=== PATIENT | female | born 1970 | race Asian ===

== ENCOUNTER 2017-04-16 05:39 | Inpatient (IN) | payer MEDICAID ==
[~2017-04-16] VITALS: Ht 162.6 cm; Wt 81.6 kg
[2017-04-16] VITALS (7 sets, daily range): BP systolic 103–124; BP diastolic 66–82
--- NOTE | 2017-04-16 06:07 | Emergency Room Report ---
History of Present Illness General Chief Complaint: Back Pain-No Injury Source: Patient Present Illness HPI Is a 39-year-old female with history of back pain the past she presents with chief complaint of lower back pain. Woke up with severe back pain. No trauma. Pain localized today right lower lumbar area. No radiation. Worse with movement. Pain is 9/10. She has history of back pain but never this severe. Denies incontinence of bowel or urine. No urinary complaint. Allergies: Coded Allergies: PENICILLINS (Verified Allergy, Unknown, 04/16/17) Uncoded Allergies: CAT (Allergy, Unknown, 04/16/17) Patient History Past Medical History: see triage record, old chart reviewed Past Surgical History: other Pertinent Family History: none Social History: Denies: smoking Last Menstrual Period: 04/15/17 Now: No : 3 Para: 3 Immunizations: other Reviewed Nursing Documentation: PMH: Agreed, PSxH: Agreed Nursing Documentation-PMH Past Medical History: No Stated History Review of Systems Eye: Denies: eye pain, blurred vision ENT: Denies: ear pain, nose congestion, throat swelling Respiratory: Denies: cough, shortness of breath Cardiovascular: Denies: chest pain, palpitations Gastrointestinal: Denies: abdominal pain, diarrhea, nausea, vomiting Musculoskeletal: Reports: back pain, Denies: joint pain Skin: Denies: rash Neurological: Denies: headache, numbness Endocrine: Denies: increased thirst, increased urine Hematologic/Lymphatic: Denies: easy bruising All Other Systems: negative except mentioned in HPI Physical Exam Vital Signs Date Time Temp Pulse Resp B/P (MAP) Pulse Ox O2 Delivery O2 Flow Rate FiO2 04/16/17 05:49 98.2 88 15 133/70 95 Room Air vitals normal Sp02 EP Interpretation: reviewed, normal General Appearance: well appearing, no apparent distress, alert Head: normocephalic, atraumatic Eyes: bilateral eye PERRL, bilateral eye EOMI ENT: hearing grossly normal, normal pharynx Neck: full range of motion, supple, no meningismus Respiratory: chest non-tender, lungs clear, normal breath sounds Cardiovascular #1: regular rate, rhythm, no murmur Gastrointestinal: normal bowel sounds, non tender, no mass, no organomegaly, no bruit, non-distended Musculoskeletal: back normal - No midline percussive tenderness. No anesthesia. Mild tenderness to the right lower lumbar paraspinous muscle, gait/ station normal, normal range of motion Psychiatric: mood/affect normal Skin: warm/dry Medical Decision Making Diagnostic Impression: Primary Impression: Back pain Qualified Codes: M54.5 - Low back pain ER Course Patient present with lower back pain. Differential include muscle strain, herniated disc, degenerative changes, renal colic, UTI to name a few. Labs and CT scan ordered. I will sign this patient out to Dr. Narvaez for final disposition. Last Vital Signs Date Time Temp Pulse Resp B/P (MAP) Pulse Ox O2 Delivery O2 Flow Rate FiO2 04/16/17 05:49 98.2 88 15 133/70 95 Room Air ANGELINA MCPHERSON M.D. Apr 16, 2017 06:07
[2017-04-16] MEDS ORDERED: HYDROmorphone 1mg/ml Carpuject IVP ONE ×4 (06:15→12:30)
[2017-04-16] MEDS ORDERED: Ketorolac 30mg Inj IV ONE ×2 (06:15→12:45)
[2017-04-16 06:25] LABS: APPEARANCE,URINE SLIGHTLY CLOUDY; BILIRUBIN, URINE 1+ (NEGATIVE); GLUCOSE, URINE (UA) NEGATIVE (NEGATIVE); KETONES,URINE NEGATIVE (NEGATIVE); LEUKOCYTE ESTERASE ,URINE 3+ (NEGATIVE); NITRITE,URINE NEGATIVE (NEGATIVE); PH,URINE 5 (4.5-8.0); PROTEIN,URINE 2+ (NEGATIVE); UROBILINOGEN,URINE 1 MG/DL (0.0-1.0)
[2017-04-16 06:28] LABS: BASOPHILS % (AUTO) 1.2 % (0.0-2.0); EOSINOPHILS % (AUTO) 5.4 % (0.0-3.0); HEMOGLOBIN 14.9 G/DL (12.0-16.0); LYMPHOCYTES % (AUTO) 38.5 % (20.0-45.0); MEAN CORPUSCULAR VOLUME 93 FL (80-99); MONOCYTES % (AUTO) 7.5 % (1.0-10.0); NEUTROPHILS % (AUTO) 47.4 % (45.0-75.0); PLATELET COUNT 309 K/UL (150-450); RED BLOOD COUNT 4.72 M/UL (4.20-5.40); RED CELL DISTRIBUTION WIDTH 11.5 % (11.6-14.8); WHITE BLOOD COUNT 7.7 K/UL (4.8-10.8)
[2017-04-16 06:40] LABS: COLOR,URINE YELLOW
[2017-04-16 06:49] LABS: ANION GAP 11 mmol/L (5-15); BLOOD UREA NITROGEN 12 mg/dL (7-18); CARBON DIOXIDE 22 MMOL/L (21-32); CHLORIDE 104 MMOL/L (98-107); CREATININE 0.9 MG/DL (0.55-1.30); SODIUM 137 MMOL/L (136-145)
[2017-04-16] MEDS ORDERED: cefTRIAXone 1 GM in NS 55 ML IVPB ONE (07:00)
[2017-04-16] MEDS ORDERED: fentaNYL 100 mcg/2 mL IV ONE (08:00)
[2017-04-16] MEDS ORDERED: NKM (09:30)
--- NOTE | 2017-04-16 12:10 | Diagnostic Imaging Report ---
Indication: Right-sided back pain Technique: Spiral acquisitions obtained through the abdomen and pelvis. No oral contrast utilized, per emergency room physician request No IV contrast utilized, per referring physician request.. Multiplanar reconstructions were generated. Total dose length product 1292.46 mGycm. CTDIvol(s) 24.36 mGy. Dose reduction achieved using automated exposure control Comparison: None Findings: The appendix is normal. No evidence of diverticulosis or diverticulitis. No small bowel distention. No free or loculated intraperitoneal air or fluid is evident. Distal esophagus, stomach, duodenum or unremarkable. No small bowel distention. Lack of IV contrast limits assessment of the solid organs. The liver is diffusely hypoattenuating, consistent with fatty change. It is somewhat enlarged as well. There is a 17 mm cyst in segment 2. Subcentimeter low-attenuation lesion is seen in segment 8 which is too small to characterize. Gallbladder, bile ducts, pancreas, spleen, adrenals, kidneys are all unremarkable. No retroperitoneal or mesenteric mass or adenopathy. No pelvic mass or adenopathy. The uterus and adnexal structures are unremarkable. The bladder is nondistended. The included lung bases demonstrate some scarring or atelectasis on the right. There are trace bilateral pleural effusions The bones are unremarkable. There is evidence of significant posterior lumbar disc protrusion at L4-5, likely resulting in significant spinal canal stenosis. Impression: No acute abdominal or pelvic abnormality Bilateral small pleural effusions Fatty liver Basilar pulmonary parenchymal scarring or atelectasis Evidence of lumbar disc disease at L4-5, possibly significant. Correlate with clinical findings This agrees with the preliminary interpretation provided overnight by [facility] teleradiology service. The CT scanner at [facility] is accredited by the [employer] and the scans are performed using protocols designed to limit radiation exposure to as low as reasonably achievable to attain images of sufficient resolution adequate for diagnostic evaluation.
[2017-04-16] MEDS ORDERED: Milk of Magnesia 30ml Ud ORAL PRN (14:45)
[2017-04-16] MEDS: traMADol 50mg tab ORAL SCH ×2 (16:09→22:11)
[2017-04-16] MEDS: Enoxaparin 40mg Inj SUBQ SCH (16:15)
[2017-04-16] MEDS: Methocarbamol 750mg tab ORAL SCH ×2 (18:19→20:18)
--- NOTE | 2017-04-16 23:45 | History and Physical Report ---
DATE OF ADMISSION: 04/16/2017 CHIEF COMPLAINT/REASON FOR HOSPITALIZATION: The patient admitted with back pain and inability to walk. HISTORY OF PRESENT ILLNESS: The patient is a 47-year-old lady who generally been in good health. She presented with some stiffness when she woke up at 4:30 in the morning noticing noise outside of her residence. She went back to bed and at 9 am awoke and it took her about 40 minutes to get out of bed. She was unable to move and unable to walk adequately and had moderate to severe back pain. The patient had CT evidence of lumbar disk disease at L4-L5, possibly significant posterior lumbar disk protrusion likely resulting in significant spinal canal stenosis. There is no history of back injury or trauma or chronic back pain. The patient does have a history of recurrent UTIs in the past but none recently. For the last three weeks, she had increased abdominal gas, not having solid bowel movements but just having loose bowel movements almost to the point of diarrhea but not watery. Because of her difficulty with gait and her pain, she was given opiates in the emergency room and was subsequently transferred to the floor. HABITS: She is a nondrinker and nonsmoker. No use of illicit drugs. PAST SURGICAL HISTORY: , left ectopic and bowel obstruction. PAST MEDICAL HISTORY: She has had endometriosis. FAMILY HISTORY: Positive for diabetes in mother and maternal grandfather, breast and cervical cancer on maternal relatives. REVIEW OF SYSTEMS: GENERAL: She has had about 40 pounds weight gain over the last year. HEENT: Negative. PULMONARY: Negative. CARDIAC: No angina, myocardial infarction, hypertension. GASTROINTESTINAL: No gastrointestinal bleeding, ulcers, or chronic abdominal pain. She may have had an ulcer many many years ago. GENITOURINARY: Recurrent urinary tract infection as above. NEUROLOGIC: No CVA, syncope, or seizures. PHYSICAL EXAMINATION: GENERAL: The patient is alert lady, in no acute distress. BMI 30.9. VITAL SIGNS: Temperature 98 degrees, pulse 68, respirations 18, and blood pressure 128/82. HEENT: Sclerae are nonicteric. Ocular motions intact in all directions. Oral mucosa is moist. NECK: No adenopathy or thyroid enlargement. LUNGS: Clear. HEART: Regular rhythm. No murmur. ABDOMEN: Soft. No organomegaly or masses. BREASTS: No masses. EXTREMITIES: No edema, cyanosis, or clubbing. NEUROLOGIC: She is alert and oriented. Cranial nerves are intact. She moves all extremities equally while lying in bed. Dorsiflexion and plantar flexion of the legs is normal. Plantar are downgoing. There is some pain with straight leg raising on the right. Gait is not tested at this time. IMPRESSION: 1. Lumbar disk. 2. Intractable back pain. 3. Gait disorder. 4. Obesity. PLAN: The patient will be given analgesics and physical therapy. I discussed with the patient and her that we would try to avoid strong opiates in view of the high risk of addiction and lack of efficacy in treating this disorder, hopefully with the above modalities she can be discharged home and arrange followup. Pramod Beltran M.D. DR: Loraine JOB#: [id number] CC:
[2017-04-17] VITALS: BP 115/73
[2017-04-17 04:00] VITALS: BP 110/67
[2017-04-17] MEDS: Acetaminophen 500mg (ES) tab ORAL PRN ×2 (04:21→11:10)
[2017-04-17] MEDS: traMADol 50mg tab ORAL SCH ×2 (06:10→14:39)
[2017-04-17 08:00] VITALS: BP 114/71
[2017-04-17] MEDS: Methocarbamol 750mg tab ORAL SCH ×2 (08:47→13:14)
[2017-04-17 12:00] VITALS: BP 113/63
[2017-04-17 16:00] VITALS: BP 112/69
[2017-04-17] MEDS: Enoxaparin 40mg Inj SUBQ SCH (16:39)
[2017-04-17] MEDS ORDERED: METHOCARBAMOL750 MG ORAL (17:34)
[2017-04-17] MEDS ORDERED: IBUPROFEN600 MG ORAL (17:34)
--- NOTE | 2017-04-18 17:15 | Discharge Summary ---
DATE OF ADMISSION: 04/16/2017 DATE OF DISCHARGE: 04/17/2017 PERTINENT HISTORY: The patient presents with right-sided back pain and sciatica, difficulty walking. PERTINENT PHYSICAL FINDINGS: The patient had difficulty ambulating and pain and somewhat positive straight leg raising. COURSE IN THE HOSPITAL: A CT scan was done of the abdomen as she initially had some vague abdominal complaints. This showed evidence of significant posterior lumbar disc protrusion at L4-L5 resulting in significant spinal canal stenosis. The patient was given non-narcotic analgesics and physical therapy saw her. With the above treatment, she was able to ambulate short distances slowly. She was given instruction on back care and discharged home in stable condition. FINAL DIAGNOSES: 1. Lumbar disc. 2. Gait disorder. DISCHARGE DISPOSITION: Home on Motrin 600 mg t.i.d., Robaxin 750 mg t.i.d., and Tylenol 1000 mg t.i.d. I gave her exercises for back pain and sciatica and she is to follow up with her primary care physician. Pramod Beltran M.D. DR: JULES JOB#: [id number] CC:
== END 2017-04-17 18:25 | disposition home or self-care (01) | DRG 347 ==
LOC: EMR 06:00 → EDBEDREQ 10:58 → 3E 11:35
DX: M51.17 Intervertebral disc disorders with radiculopathy, lumbosacral region (principal); E66.9 Obesity, unspecified; R26.2 Difficulty in walking, not elsewhere classified; M48.061 Spinal stenosis, lumbar region without neurogenic claudication
CPT/HCPCS: 36415; 74176; 80048; 81001; 81025; 85025; 87086; 99285; J2405

== ENCOUNTER 2017-04-21 11:03 | Emergency (ER) | payer MEDICAID ==
[~2017-04-21] VITALS: Ht 162.6 cm; Wt 81.6 kg
[~2017-04-21 11:03] MED LIST: IBUPROFEN600 MG ORAL; METHOCARBAMOL750 MG ORAL; NKM
[2017-04-21] MEDS ORDERED: Dexamethasone 4mg/ml vial IVP ONE (11:45)
[2017-04-21] MEDS ORDERED: Morphine Sulfate 4mg/ml Inj IVP ONE (11:45)
[2017-04-21] MEDS ORDERED: Ketorolac 30mg Inj IV ONE (11:45)
[2017-04-21] MEDS ORDERED: Sodium Chloride 500ML 500 ML IV ONE (11:45)
[2017-04-21] MEDS ORDERED: ACETAMINOPHEN-1 EAC1 ORAL (13:34)
[2017-04-21] MEDS ORDERED: PREDNISONE20 MG ORAL (13:34)
[2017-04-21] MEDS ORDERED: medrol dose pack (13:36)
[2017-04-21 14:24] VITALS: BP 97/64
--- NOTE | 2017-04-23 14:43 | Emergency Room Report ---
History of Present Illness General Chief Complaint: Back Pain-No Injury Source: Patient, Medical Record Present Illness HPI Patient presents with acute exacerbation of her right lower back pain Patient was here several days ago with admission to the hospital with the acute pain CAT scan of the abdomen pelvis area in the lower back did reveal evidence of stenosis Patient had done better At this time has poor outpatient followup And given the increased pain presents to the emergency room Pain was 10 out of 10 localized to the right lower back area Some radiation to the buttock and lateral leg Denies any new fall or trauma denies any fevers or chills denies any focal weakness however she does have increased pain in the buttock and lower back Denies any loss of control of bowel or urination Allergies: Coded Allergies: PENICILLINS (Verified Allergy, Unknown, 04/16/17) Uncoded Allergies: CAT (Allergy, Unknown, 04/16/17) Patient History Past Medical History: see triage record Pertinent Family History: none Last Menstrual Period: 04/14/17 Reviewed Nursing Documentation: PMH: Agreed, PSxH: Agreed Nursing Documentation-PMH Past Medical History: No History, Except For Hx Cardiac Problems: No Hx Cancer: No Hx Neurological Problems: No Review of Systems All Other Systems: negative except mentioned in HPI Physical Exam Vital Signs Date Time Temp Pulse Resp B/P (MAP) Pulse Ox O2 Delivery O2 Flow Rate FiO2 04/21/17 11:14 97.7 61 19 131/65 97 Room Air Sp02 EP Interpretation: reviewed, normal General Appearance: mild distress - In acute pain Head: normocephalic, atraumatic Eyes: bilateral eye PERRL, bilateral eye EOMI ENT: hearing grossly normal, normal pharynx, TMs + canals normal, uvula midline Neck: full range of motion, supple, no meningismus, no bony tend Respiratory: lungs clear, normal breath sounds, no rhonchi, no respiratory distress, no retraction, no accessory muscle use Cardiovascular #1: normal peripheral pulses, regular rate, rhythm, no edema, no gallop, no JVD, no murmur Gastrointestinal: normal bowel sounds, non tender, soft, no mass, no organomegaly, non-distended, no guarding, no hernia, no pulsatile mass, no rebound Musculoskeletal: other - Tender on the right posterior superior iliac crest, no obvious midline step-off patient able to flex at both knees has appropriate flexion extension of the foot on the right side sensory is intact Neurologic: oriented x3, responsive, marketing recruiter III-XII nml as tested, motor strength/ tone normal, sensory intact - Rectal exam was deferred patient denies any decreased sensation in the genital area Psychiatric: mood/affect normal Skin: normal color, no rash, warm/dry, palpation normal Lymphatic: normal inspection, no adenopathy Medical Decision Making Diagnostic Impression: Primary Impression: back pain Additional Impression: sciatica ER Course Patient's imaging from previous is reviewed there is evidence of some stenosis patient did have recent hospital stay Patient will likely benefit from outpatient dedicated low back MRI At this time shows signs of increased discomfort and was treated in the ER Has done significantly better and placed on steroids Patient requires improved outpatient followup Unfortunately we do not have any neurosurgical referrals patient is referred to outpatient clinic for further continued evaluation if pain increases or there is any weakness patient requires a neurosurgical emergency referral at [facility]/ [facility] who do have neurosurgery capacity Last Vital Signs Date Time Temp Pulse Resp B/P (MAP) Pulse Ox O2 Delivery O2 Flow Rate FiO2 04/21/17 14:24 71 18 97/64 97 Room Air 04/21/17 14:24 98.3 Status: improved Disposition: HOME, SELF-CARE Condition: Improved Scripts [medrol dose pack] No Conflict Check for 10 Days Prov: JOSEPH OH D.O. 04/21/17 Prednisone* (PREDNISONE*) 20 Mg Tablet 60 MG ORAL DAILY, #5 TAB Prov: JOSEPH OH D.O. 04/21/17 Acetaminophen With Codeine (T#3) (TYLENOL #3 TAB*) Y Tab 1 TAB ORAL Q8H Y for For Pain, #12 TAB Prov: JOSEPH OH D.O. 04/21/17 Referrals: NOT CHOSEN [facility]/MD,REFERRING (PCP) Patient Instructions: Sciatica, Back Pain, Adult Additional Instructions: Patient is provided with the discharge instructions notified to follow up with primary doctor in the next 2-3 days otherwise return to the er with any worsening symptoms. Please note that this report is being documented using [employer] technology. This can lead to erroneous entry secondary to incorrect interpretation by the dictating instrument. JOSEHP OH D.O. Apr 23, 2017 14:43
== END 2017-04-21 14:26 | disposition home or self-care (01) ==
LOC: EMR 12:13
DX: M54.41 Lumbago with sciatica, right side (principal); Z88.0 Allergy status to penicillin
CPT/HCPCS: 96361; 96374; 96375; 99284; J1100; J1885; J2270; J2550; J7040

== ENCOUNTER 2019-04-13 05:48 | Emergency (ER) | payer SELFPAY ==
[~2019-04-13] VITALS: Ht 162.6 cm; Wt 79.4 kg
[~2019-04-13 05:48] MED LIST changes: +ACETAMINOPHEN-1 EAC1 ORAL; +PREDNISONE20 MG ORAL; +medrol dose pack
[2019-04-13 05:57] VITALS: BP 125/87
--- NOTE | 2019-04-13 05:57 | NUR ---
ED Nurse Note: Pt walked into ED c/o lower abdominal pain and nausea today at 0500. Denies vomiting and diarrhea. Afebrile. Has hx of intestinal blockage x15 years ago. Not in any distress. VSS. Pt placed on the electrical service technician. at bedside.
[2019-04-13] MEDS ORDERED: Morphine Sulfate 4mg/ml Inj (IV USE ONLY) IVP ONE (06:00)
[2019-04-13] MEDS ORDERED: Omnipaque-300 100ml vial INJ PRN (06:00)
--- NOTE | 2019-04-13 06:01 | NUR ---
ED Nurse Note: ERMD at bedside.
--- NOTE | 2019-04-13 06:05 | NUR ---
ED Nurse Note: IV ACCESS ESTABLISHED.BLOOD AND URINE COLLECTED; SENT DOWN TO LAB.
[2019-04-13 06:18] LABS: APPEARANCE,URINE CLEAR; BASOPHILS % (AUTO) 0.7 % (0.0-2.0); BILIRUBIN, URINE NEGATIVE (NEGATIVE); EOSINOPHILS % (AUTO) 4.2 % (0.0-3.0); GLUCOSE, URINE (UA) NEGATIVE (NEGATIVE); HEMATOCRIT 40.5 % (37.0-47.0); HEMOGLOBIN 14.1 G/DL (12.0-16.0); KETONES,URINE NEGATIVE (NEGATIVE); LEUKOCYTE ESTERASE ,URINE 2+ (NEGATIVE); LYMPHOCYTES % (AUTO) 39.2 % (20.0-45.0); MEAN CORPUSCULAR VOLUME 92 FL (80-99); NEUTROPHILS % (AUTO) 48.9 % (45.0-75.0); NITRITE,URINE NEGATIVE (NEGATIVE); PH,URINE 5 (4.5-8.0); PLATELET COUNT 279 K/UL (150-450); PROTEIN,URINE 2+ (NEGATIVE); RED BLOOD COUNT 4.42 M/UL (4.20-5.40); RED CELL DISTRIBUTION WIDTH 11.3 % (11.6-14.8); UROBILINOGEN,URINE NORMAL MG/DL (0.0-1.0); WHITE BLOOD COUNT 12.2 K/UL (4.8-10.8)
[2019-04-13 06:19] LABS: COLOR,URINE YELLOW
--- NOTE | 2019-04-13 06:21 | Emergency Room Report ---
History of Present Illness General Chief Complaint: Abdominal Pain Source: Patient Present Illness HPI Disclaimer: Please note that this report is being documented using [employer] technology. This can lead to erroneous entry secondary to incorrect interpretation by the dictating instrument. HPI:-year-old female with a history of SBO and bowel resection, bilateral salpingectomy presents for evaluation of abdominal pain. She was in her usual state of health when she went to sleep last night. Awoke up approximately 5 AM with severe cramping and stabbing pain in the right lower quadrant and suprapubic region. She had a normal bowel movement though this intensified the right lower quadrant pain significantly. She broke out in the cold sweats. Reports nausea without vomiting. Denies flank pain, dysuria or hematuria. No recent fevers. Denies chest pain or shortness of breath. PMH: Denies PSH: Bowel resection, bilateral salpingectomy Allergies: Penicillin Social Hx: Denies drug or alcohol use Allergies: Coded Allergies: PENICILLINS (Verified Allergy, Unknown, 04/16/17) Uncoded Allergies: CAT (Allergy, Unknown, 04/16/17) Patient History Now: No Nursing Documentation-PMH Past Medical History: No Stated History Hx Cardiac Problems: No Hx Cancer: No Hx Neurological Problems: No Review of Systems All Other Systems: negative except mentioned in HPI Physical Exam Vital Signs Date Time Temp Pulse Resp B/P (MAP) Pulse Ox O2 Delivery O2 Flow Rate FiO2 04/13/19 05:51 98.2 81 16 125/87 (100) 99 Room Air General: Awake and alert, appears uncomfortable HEENT: NC/AT. EOMI. Cardiovascular: RRR. S1 and S2 normal. No murmur appreciated Resp: Normal work of breathing. No cough, wheezing or crackles appreciated Abdomen: Abdomen is soft, nondistended, obese. Significant tenderness palpation in the suprapubic region and right lower quadrant with guarding. No rebound. Cannot palpate mass. Skin: Intact. No abrasions, laceration or rash over the exposed skin MSK: Normal tone and bulk. Moving all extremities. No obvious deformity. Neuro: Awake and alert. Mentating appropriately. Medical Decision Making Diagnostic Impression: Primary Impression: Abdominal pain Additional Impression: Urinary tract infection ER Course 49-year-old female presents for evaluation of sudden onset severe right lower quadrant suprapubic pain. Differential includes was not limited to bowel obstruction, appendicitis, cholecystitis, nephrolithiasis, pyelonephritis, UTI to name a few. Start IV fluids, pain medication, broad labs and send for CT scan of the abdomen. Patient will be signed out to oncoming provider pending CT and lab results Last Vital Signs Date Time Temp Pulse Resp B/P (MAP) Pulse Ox O2 Delivery O2 Flow Rate FiO2 04/13/19 05:57 98.2 81 16 125/87 99 Room Air Scripts Hydrocodone Bit/Acetaminophen 5-325* (NORCO 5-325*) 1 Each Tablet 1 TAB ORAL Q6H PRN for For Pain, #10 TAB 0 Refills Prov: Emanuel Sheppard MD 04/13/19 Levofloxacin (LEVOFLOXACIN*) 500 Mg Tablet 500 MG ORAL DAILY, #14 TAB Prov: Emanuel Sheppard MD 04/13/19 Referrals: NOT CHOSEN [facility]/,REFERRING (PCP) Tj Massey MD Apr 13, 2019 06:21
[2019-04-13 06:33] LABS: ANION GAP 9 mmol/L (5-15); BLOOD UREA NITROGEN 10 mg/dL (7-18); CALCIUM 8.3 MG/DL (8.5-10.1); CARBON DIOXIDE 26 MMOL/L (21-32); CHLORIDE 107 MMOL/L (98-107); CREATININE 0.9 MG/DL (0.55-1.30); POTASSIUM 3.8 MMOL/L (3.5-5.1); SODIUM 142 MMOL/L (136-145)
[2019-04-13 06:38] LABS: ALANINE AMINOTRANSFERASE 76 U/L (12-78); ALBUMIN 3.9 G/DL (3.4-5.0); ALBUMIN/GLOBULIN RATIO 1.1 (1.0-2.7); ALKALINE PHOSPHATASE 55 U/L (46-116); ASPARTATE AMINO TRANSFERASE 21 U/L (15-37); BILIRUBIN,TOTAL 0.3 MG/DL (0.2-1.0)
--- NOTE | 2019-04-13 06:56 | NUR ---
HAND-OFF: Report given to Michael ROBERTSON. Endorsed plan of care.
--- NOTE | 2019-04-13 07:10 | NUR ---
ED Nurse Note: Received pt on bed, VSS, on RA. Per pt, she still feels pain on her RT lower abdomen that started this 0500 in the morning. Per assessment, pt feels 'gassy' for a week. IV antibiotics started, will continue to monitor.
[2019-04-13 07:18] VITALS: BP 108/76
--- NOTE | 2019-04-13 07:28 | NUR ---
ED Nurse Note: Pt went on CT via wheelchair accompanied by tech.
--- NOTE | 2019-04-13 07:42 | NUR ---
ED Nurse Note: Pt returned from CT, on stable condition.
--- NOTE | 2019-04-13 08:30 | Diagnostic Imaging Report ---
EXAM: CT Abdomen and Pelvis With Intravenous Contrast CLINICAL HISTORY: ABD PAIN TECHNIQUE: Axial computed tomography images of the abdomen and pelvis with intravenous contrast. CTDI is 24 mGy and DLP is 1434 mGy-cm. One or more of the following dose reduction techniques were used: automated exposure control, adjustment of the mA and/or kV according to patient size, use of iterative reconstruction technique. COMPARISON: 02/13/18. FINDINGS: Lung bases: Unremarkable. No mass. No consolidation. ABDOMEN: Liver: There is unchanged moderate fatty infiltration of the liver which is enlarged measuring 22 cm in length. Gallbladder and bile ducts: Unremarkable. No calcified stones. No ductal dilation. Pancreas: Unremarkable. No mass. No ductal dilation. Spleen: Unremarkable. No splenomegaly. Adrenals: Unremarkable. No mass. Kidneys and ureters: Unremarkable. No solid mass. No hydronephrosis. Stomach and bowel: Unremarkable. No obstruction. No mucosal thickening. PELVIS: Appendix: No findings to suggest acute appendicitis. Bladder: Unremarkable. No mass. Reproductive: Unremarkable as visualized. ABDOMEN and PELVIS: Intraperitoneal space: There is trace free pelvic fluid, likely physiologic. No free air. Bones/joints: No acute fracture. No dislocation. Soft tissues: Unremarkable. Vasculature: Unremarkable. No abdominal aortic aneurysm. Lymph nodes: Unremarkable. No enlarged lymph nodes. IMPRESSION: No acute findings in the abdomen or pelvis.
[2019-04-13] MEDS ORDERED: NORCO 5-325 TA1 EACH ORAL (09:29)
[2019-04-13] MEDS ORDERED: LEVOFLOXACIN500 MG ORAL (09:29)
[2019-04-13 09:38] VITALS: BP 125/81
--- NOTE | 2019-04-13 09:38 | NUR ---
ER DISCHARGE NOTE: Pt is cleared to be discharged per ERMD, pt is AOx4, on RA, with stable vital signs. pt was given dc and prescription instructions, pt was able to verbalize understanding, pt id band and iv site removed without complications. pt is able to ambulate with steady gait. pt took all belongings; accompanied by family member.
== END 2019-04-13 09:38 | disposition home or self-care (01) ==
LOC: EMR 06:00
DX: R10.31 Right lower quadrant pain (principal); Z88.0 Allergy status to penicillin
CPT/HCPCS: 36415; 74177; 80053; 81003; 83690; 85025; 87086; 87181; 96361; 96365; 96375; 99284; J1956; J2270; J2405; J7030; Q9967